=== PATIENT | female | born 1950 | race Caucasian/White ===

== ENCOUNTER 2018-12-21 12:56 | Emergency (ER) | payer OTHER ==
[2018-12-21 13:57] LABS: Absolute Lymphocytes (CBC) 0.9 K/uL (0.7-4.9); Basophils % 0.7 % (0-1.3); Hematocrit 42.9 % (36.0-45.0); Lymphocytes % 23.2 % (15.3-44.8); MPV 8.1 fL (7.6-11.3); RBC Red Blood Cell Count 4.64 M/uL (3.86-4.86)
[2018-12-21 14:08] LABS: Potassium 3.9 mmol/L (3.5-5.1)
[2018-12-21 14:11] LABS: Bilirubin Direct 0.1 mg/dL (0-0.2); Bilirubin Total 0.4 mg/dL (0.2-1.0); Protein, Total 7.5 g/dL (6.4-8.2)
--- NOTE | 2018-12-21 15:07 | EDPHYS ---
Physician Documentation [facility] Name: Amparo Reece Age: 68 yrs Sex: Female : 1950 Arrival Date: 12/21/2018 Time: 12:57 Bed 7 Private MD: ED Physician Perry Hernandez HPI: 12/21 14:04 This 68 yrs old Female presents to ER via Ambulatory with complaints of Eye rn Problem. 14:04 The patient is experiencing redness, The patient sustained None. to both eyes. rn 14:05 Onset: The symptoms/episode began/occurred 2 day(s) ago. Duration: the symptoms are rn continuous. Aggravated by nothing. Alleviated by nothing. Severity of symptoms: At their worst the symptoms were mild in the emergency department the symptoms are unchanged. The patient has not experienced similar symptoms in the past. Reports eyes feel irritated, no injury or splash, no foreign body, no fever, no vision changes, reports concerned due to yellowing of her eyes. Denies liver problems/abd pain. . Historical: - Allergies: 13:02 amoxicillin trihydrate; hj 13:02 potassium clavulanate; hj 13:02 PENICILLINS; hj 13:02 Codeine; hj 13:02 Aspirin; hj 13:02 Vancomycin; hj 13:02 levofloxacin; hj 13:02 Cefdinir; hj - PSHx: 13:02 Cholecystectomy; Appendectomy; acl repair; hj - Immunization history:: Adult Immunizations up to date. - Social history:: Smoking status: Patient/guardian denies using tobacco. - Family history:: not pertinent. - Ebola Screening: : No symptoms or risks identified at this time. - Hospitalizations: : No recent hospitalization is reported. ROS: 14:05 Constitutional: Negative for fever, chills, and weight loss, Eyes: + redness of eyes, + rn clear drainage, yellowing of sclera Abdomen/GI: Negative for abdominal pain, nausea, vomiting, diarrhea, and constipation, Skin: Negative for injury, rash, and discoloration, Neuro: Negative for headache, weakness, numbness, tingling, and seizure. Exam: 14:05 Visual Acuity: Visual acuity is within normal limits. rn 14:05 Constitutional: This is a well developed, well nourished patient who is awake, alert, and in no acute distress. Head/Face: Normocephalic, atraumatic. Eyes: Pupils equal round and reactive to light, extra-ocular motions intact. Lids and lashes normal. Mild injection of lower conjunctiva and yellow hue of medial oscar of sclera. No hyphema, no hypopyon. No corneal defect. Vital Signs: 13:02 BP 154 / 92; Pulse 78; Resp 18; Temp 98.1(TE); Pulse Ox 99% on R/A; Weight 67.13 kg; hj Height 5 ft. 3 in. (160.02 cm); Pain 0/10; 14:46 BP 141 / 79; Pulse 72; Resp 16; Temp 98; Pulse Ox 98% ; bp 13:02 Body Mass Index 26.22 (67.13 kg, 160.02 cm) hj MDM: 13:22 Patient medically screened. rn 15:05 Differential diagnosis: Data reviewed: vital signs, nurses notes, lab test result(s), rn and as a result, I will discharge patient. Counseling: I had a detailed discussion with the patient and/or guardian regarding: the historical points, exam findings, and any diagnostic results supporting the discharge/admit diagnosis, lab results, the need for outpatient follow up, to return to the emergency department if symptoms worsen or persist or if there are any questions or concerns that arise at home. Special discussion: I discussed with the patient/guardian in detail that at this point there is no indication for admission to the hospital. It is understood, however, that if the symptoms persist or worsen the patient needs to return immediately for re-evaluation. ED course: LFTs/bili normal, will dc home with abx given leaving out of town.. 12/21 13:32 Order name: LFT's; Complete Time: 15:05 rn 12/21 13:37 Order name: CBC with Diff; Complete Time: 15:05 rn 12/21 13:37 Order name: Basic Metabolic Panel; Complete Time: 15:05 rn Administered Medications: No medications were administered Disposition: 12/21/18 15:06 Discharged to Home. Impression: Conjunctivitis. - Condition is Stable. - Discharge Instructions: Bacterial Conjunctivitis, Viral Conjunctivitis. - Prescriptions for Erythromycin 5 mg/gram (0.5 %) Ophthalmic Ointment - apply 1 centimeter by OPHTHALMIC route 2-3 times daily for 7 days; 1 tube. - Medication Reconciliation Form, Thank You Letter, Antibiotic Education, Prescription Opioid Use form. - Follow up: Private Physician; When: As needed; Reason: Recheck today's complaints, Re-evaluation by your physician. - Problem is new. - Symptoms have improved. Signatures: Dispatcher [employer] EDMS Perry Hernandez MD MD rn Joaquin, Henry, RN RN hj Peltier, Brian, RN RN bp Corrections: (The following items were deleted from the chart) 15:22 15:06 12/21/2018 15:06 Discharged to Home. Impression: Conjunctivitis. Condition is bp Stable. Forms are Medication Reconciliation Form, Thank You Letter, Antibiotic Education, Prescription Opioid Use. Follow up: Private Physician; When: As needed; Reason: Recheck today's complaints, Re-evaluation by your physician. Problem is new. Symptoms have improved. rn
--- NOTE | 2018-12-21 15:07 | ER ---
Nurse's Notes [facility] Name: Amparo Reece Age: 68 yrs Sex: Female : 1950 Arrival Date: 12/21/2018 Time: 12:57 Bed 7 Private MD: Diagnosis: Conjunctivitis Presentation: 12/21 12:58 Presenting complaint: Patient states: 2 days ago, both my eyes elle irritated, the lower lid is so red and looks like inner part of the eye has a blood shot in it and i noticed the white part of my eye turned yellow; denies pain and blurry vision;. Transition of care: patient was not received from another setting of care. Onset of symptoms was December 21, 2018. Risk Assessment: Do you want to hurt yourself or someone else? Patient reports no desire to harm self or others. Initial Sepsis Screen: Does the patient meet any 2 criteria? No. Patient's initial sepsis screen is negative. Does the patient have a suspected source of infection? No. Patient's initial sepsis screen is negative. Care prior to arrival: None. 12:58 Method Of Arrival: Ambulatory 12:58 Acuity: GATO 4 Triage Assessment: 13:20 General: Appears in no apparent distress. comfortable, Behavior is calm, cooperative, bp appropriate for age. Pain: Complains of pain in right eye and left eye. EENT: Reports pain in right eye and left eye. Neuro: No deficits noted. Cardiovascular: No deficits noted. Respiratory: No deficits noted. GI: No signs and/or symptoms were reported involving the gastrointestinal system. : No signs and/or symptoms were reported regarding the genitourinary system. Derm: No deficits noted. Musculoskeletal: No deficits noted. Historical: - Allergies: 13:02 amoxicillin trihydrate; hj 13:02 potassium clavulanate; hj 13:02 PENICILLINS; hj 13:02 Codeine; hj 13:02 Aspirin; hj 13:02 Vancomycin; hj 13:02 levofloxacin; hj 13:02 Cefdinir; hj - PSHx: 13:02 Cholecystectomy; Appendectomy; acl repair; hj - Immunization history:: Adult Immunizations up to date. - Social history:: Smoking status: Patient/guardian denies using tobacco. - Family history:: not pertinent. - Ebola Screening: : No symptoms or risks identified at this time. - Hospitalizations: : No recent hospitalization is reported. Screenin:22 Abuse screen: Denies threats or abuse. Denies injuries from another. Nutritional bp screening: No deficits noted. Tuberculosis screening: No symptoms or risk factors identified. Fall Risk None identified. Assessment: 13:21 General: SEE TRIAGE NOTE. bp 14:46 Reassessment: ALL CURRENT ORDERS COMPLETED, DISPO PENDING. bp 15:21 Reassessment: PT D/C HOME AMBULATORY, DX WITH CONJUNCTIVITIS. bp Vital Signs: 13:02 BP 154 / 92; Pulse 78; Resp 18; Temp 98.1(TE); Pulse Ox 99% on R/A; Weight 67.13 kg; hj Height 5 ft. 3 in. (160.02 cm); Pain 0/10; 14:46 BP 141 / 79; Pulse 72; Resp 16; Temp 98; Pulse Ox 98% ; bp 13:02 Body Mass Index 26.22 (67.13 kg, 160.02 cm) hj ED Course: 12:57 Patient arrived in ED. as 13:01 Triage completed. hj 13:02 Arm band placed on right wrist. hj 13:20 Saroj Clark, RN is Primary Nurse. bp 13:22 Perry Hernandez MD is Attending Physician. rn 13:22 Patient has correct armband on for positive identification. Bed in low position. Call bp light in reach. Side rails up X2. 15:22 No provider procedures requiring assistance completed. Patient did not have IV access bp during this emergency room visit. Administered Medications: No medications were administered Outcome: 15:06 Discharge ordered by . rn 15:22 Discharged to home ambulatory. bp 15:22 Condition: stable 15:22 Discharge instructions given to patient, Instructed on discharge instructions, follow up and referral plans. medication usage, Demonstrated understanding of instructions, follow-up care, medications, Prescriptions given X 1. 15:22 Patient left the ED. bp Signatures: Corrie Qiu Roman, MD MD rn Joaquin, Henry, RN RN Saroj Clark RN RN bp Corrections: (The following items were deleted from the chart) 13:04 13:02 Pulse 78bpm; Resp 18bpm; Pulse Ox 99% RA; Temp 98.1F Temporal; 67.13 kg; Height 5 hj ft. 3 in.; BMI: 26.2; Pain 0/10; hj
[2018-12-21 15:29] VITALS: BP 141/79; TEMP 98; O2SAT 98
== END 2018-12-21 15:22 | disposition home or self-care (01) ==
LOC: ER 12:56
DX: H10.9 Unspecified conjunctivitis (principal); Z88.0 Allergy status to penicillin; Z88.1 Allergy status to other antibiotic agents; Z88.3 Allergy status to other anti-infective agents; Z88.5 Allergy status to narcotic agent; Z88.6 Allergy status to analgesic agent; Z88.8 Allergy status to other drugs, medicaments and biological substances
CPT/HCPCS: 36415; 80048; 80076; 85025; 99282